=== PATIENT | male | born 1990 | race Caucasian/White ===

== ENCOUNTER 2021-12-23 17:42 | Emergency (ER) | payer BC, OTHER ==
[~2021-12-23] VITALS: Ht 167.6 cm; Wt 63.5 kg
[2021-12-23 17:55] VITALS: BP 119/73
[2021-12-23] MEDS ORDERED: IBUPROFEN 600 MG TABLET PO ONE (18:30)
[2021-12-23] MEDS ORDERED: IBUPROFEN 600 MG TABLET ONE (18:33)
--- NOTE | 2021-12-23 18:59 | NUR ---
Patient discharged to home in stable condition. Written and verbal after care instructions given. Patient verbalizes understanding of instruction.
== END 2021-12-23 19:00 | disposition home or self-care (01) ==
LOC: ER 17:54
DX: S93.501A Unspecified sprain of right great toe, initial encounter (principal); W20.8XXA Other cause of strike by thrown, projected or falling object, initial encounter; Y93.89 Activity, other specified; Y92.89 Other specified places as the place of occurrence of the external cause; Y99.8 Other external cause status
CPT/HCPCS: 73630-TC